=== PATIENT | male | born 1965 | race Caucasian/White ===

== ENCOUNTER 2019-09-05 23:50 | Emergency (ER) | payer OTHER ==
[~2019-09-05] VITALS: Ht 170.2 cm; Wt 81.6 kg
[2019-09-06] VITALS: BP 134/95
[2019-09-06 01:32] LABS: BASOPHILS # (AUTO) 0.1 K/uL (0.00-0.22); EOSINOPHILS # (AUTO) 0.1 K/uL (0-0.4); EOSINOPHILS % (AUTO) 1.8 % (0.0-4.0); HEMOGLOBIN 13.3 g/dL (12.0-18.0); LYMPHOCYTES # (AUTO) 2.3 K/uL (2.0-11.5); LYMPHOCYTES % (AUTO) 28.2 % (20.5-51.1); MEAN CORPUSCULAR HEMOGLOBIN 30 pg (27-31); MEAN CORPUSCULAR HGB CONC 33 g/dL (33-37); MEAN CORPUSCULAR VOLUME 89.5 fL (80-94); MONOCYTES # (AUTO) 0.5 K/uL (0.8-1.0); MONOCYTES % (AUTO) 5.9 % (1.7-9.3); NEUTROPHILS # (AUTO) 5.1 K/uL (1.8-7.7); NEUTROPHILS % (AUTO) 63.1 % (42.2-75.2); PLATELET COUNT (AUTO) 200 K/uL (140-450); RED BLOOD CELL COUNT(AUTO) 4.47 MIL/uL (4.20-6.10); RED CELL DISTRIBUTION WIDTH 15.6 % (11.6-13.7); WHITE BLOOD COUNT (AUTO) 8.1 K/uL (4.8-10.8)
[2019-09-06 01:49] LABS: ALBUMIN 3.7 g/dL (3.4-5.0); ANION GAP 12.8 (8-16); CARBON DIOXIDE 26.3 mmol/L (21-32); POTASSIUM 4.1 mmol/L (3.5-5.1); TOTAL BILIRUBIN 0.4 mg/dL (0.0-1.0)
[2019-09-06 02:20] VITALS: BP 134/95
== END 2019-09-06 02:20 | disposition home or self-care (01) ==
LOC: MED 23:50
DX: R33.9 Retention of urine, unspecified (principal)
CPT/HCPCS: 36415; 51702; 80053; 85025; 99283; 99284

== ENCOUNTER 2020-03-05 16:49 | Emergency (ER) | payer OTHER ==
[~2020-03-05] VITALS: Ht 170.2 cm; Wt 88.5 kg
[2020-03-05 16:52] VITALS: BP 117/78
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
[2020-03-05] MEDS ORDERED: cefTRIAXone 1,000 MG in LIDOCAINE MPF 1% 2.1 ML IM ONE (17:50)
[2020-03-05] MEDS ORDERED: cefTRIAXone 1,000 MG VIAL ONE (17:56)
[2020-03-05] MEDS ORDERED: LIDOCAINE MPF 1% 5 ML ONE (17:57)
[2020-03-05 18:42] VITALS: BP 117/78
--- NOTE | 2020-03-05 18:43 | NUR ---
Patient discharged with v/s stable. Written and verbal after care instructions given and explained. Patient alert, oriented and verbalized understanding of instructions. Ambulatory w cane. All questions addressed prior to discharge. ID band removed. Patient advised to follow up with PMD. Rx of NIROFURANTOIN given. Patient educated on indication of medication including possible reaction and side effects. Opportunity to ask questions provided and answered.
--- NOTE | 2020-03-11 15:53 | NUR ---
Urine culture received from lab. Culture and sensitivity received and shown to Dr. Langston. New Rx for Rx Augmentin 750mg PO BID x10 days received. Patient called and no answer. Unable to leave a voicemail, states mailbox is full. NOK called and voicemail was left and asked patient to call back.
== END 2020-03-05 18:43 | disposition home or self-care (01) ==
LOC: MED 16:49
DX: N30.00 Acute cystitis without hematuria (principal)
CPT/HCPCS: 51702; 81002; 87086; 96372; 99284; J0696; J2001; 99283

== ENCOUNTER 2020-04-10 12:56 | Emergency (ER) | payer OTHER, SELFPAY ==
[~2020-04-10] VITALS: Ht 170.2 cm; Wt 86.2 kg
[~2020-04-10 12:56] MED LIST: ERTA1VIA2 IJ; HYDR-5092 PO; MSCON15 PO; [UNRECOGNIZED DRUG - CODE] PO
[2020-04-10 13:03] VITALS: BP 108/79
--- NOTE | 2020-04-10 13:14 | NUR ---
PATIENT AMBULATED TO ER BED 04
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
--- NOTE | 2020-04-10 13:30 | NUR ---
PT CHANGED INTO A GOWN. 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 PT REPORTS LAST PAIN MANAGEMENT AT 1000 AND STATES 11/13 PAIN. ORIENTED TO CALL LIGHT. BED LOCKED IN LOWEST POSITION. SIDE RAILS X 1.
[2020-04-10] MEDS ORDERED: NACL 0.9% 1,000 ML IV SCH (14:05)
[2020-04-10] MEDS ORDERED: MORPHINE SULFATE 4 MG/ML SYR IVP ONE ×2 (14:05→16:25)
--- NOTE | 2020-04-10 14:20 | NUR ---
LAB AT BEDSIDE
--- NOTE | 2020-04-10 14:25 | NUR ---
CONSENT TO CT WITH IV CONTRAST OBTAINED FROM PT
--- NOTE | 2020-04-10 14:32 | NUR ---
CALLED RAD TO LET THEM KNOW PT IS READY FOR CT AND THAT ERMD STATES OK TO BYPASS LAB RESULTS
[2020-04-10 14:40] LABS: APPEARANCE,URINE SL CLOUDY (CLEAR); BILIRUBIN,URINE NEGATIVE (NEGATIVE); BLOOD, URINE 2+ (NEGATIVE); COLOR,URINE YELLOW (YELLOW); LEUKOCYTE ESTERASE ,URINE 1+ (NEGATIVE); NITRITE, URINE NEGATIVE (NEGATIVE); UGLUCOSE NEGATIVE (NEGATIVE)
--- NOTE | 2020-04-10 14:47 | NUR ---
PT TAKEN TO CT VIA WHEELCHAIR
[2020-04-10 14:50] LABS: BASOPHILS # (AUTO) 0.1 K/uL (0.00-0.22); EOSINOPHILS # (AUTO) 0.2 K/uL (0-0.4); EOSINOPHILS % (AUTO) 2.5 % (0.0-4.0); HEMATOCRIT 43.8 % (36-52); HEMOGLOBIN 14.5 g/dL (12.0-18.0); LYMPHOCYTES # (AUTO) 2.1 K/uL (2.0-11.5); LYMPHOCYTES % (AUTO) 25.5 % (20.5-51.1); MEAN CORPUSCULAR HEMOGLOBIN 30 pg (27-31); MEAN CORPUSCULAR HGB CONC 33 g/dL (33-37); MEAN CORPUSCULAR VOLUME 90.8 fL (80-94); MONOCYTES # (AUTO) 0.4 K/uL (0.8-1.0); MONOCYTES % (AUTO) 4.4 % (1.7-9.3); NEUTROPHILS # (AUTO) 5.6 K/uL (1.8-7.7); NEUTROPHILS % (AUTO) 66.6 % (42.2-75.2); PLATELET COUNT (AUTO) 305 K/uL (140-450); RED BLOOD CELL COUNT(AUTO) 4.82 MIL/uL (4.20-6.10); RED CELL DISTRIBUTION WIDTH 14.4 % (11.6-13.7); WHITE BLOOD COUNT (AUTO) 8.4 K/uL (4.8-10.8)
[2020-04-10 15:01] LABS: WBC,URINE 16-25 (MOD) /HPF (0-5)
--- NOTE | 2020-04-10 15:05 | NUR ---
PT RETURNED FROM CT VIA WHEELCHAIR AND ONTO BED WITHOUT ISSUE. BOLUS IV FLUIDS STARTED PER ORDER. PT STATES PAIN IS 5/10 UPON REASSESSMENT. PT VSS AND IN POSITION OF COMFORT. BED LOCKED AT LOWEST POSITION WITH CALL LIGHT IN REACH. SIDE RAILS X1. PT STATES NEEDS MET.
[2020-04-10 15:26] LABS: ALBUMIN 3.7 g/dL (3.4-5.0); ANION GAP 14.9 (8-16); CREATININE 1.7 mg/dL (0.6-1.3); POTASSIUM 3.9 mmol/L (3.5-5.1); TOTAL BILIRUBIN 0.3 mg/dL (0.0-1.0)
[2020-04-10 16:55] VITALS: BP 116/71
--- NOTE | 2020-04-10 16:55 | NUR ---
Patient discharged with v/s stable. Written and verbal after care instructions given and explained. Patient alert, oriented and verbalized understanding of instructions. Ambulatory with walker to car. All questions addressed prior to discharge. ID band removed. Patient advised to follow up with PMD. Rx of Macrobid given. Patient educated on indication of medication including possible reaction and side effects. Opportunity to ask questions provided and answered.
== END 2020-04-10 16:55 | disposition home or self-care (01) ==
LOC: MED 12:56
DX: N39.0 Urinary tract infection, site not specified (principal); Z90.6 Acquired absence of other parts of urinary tract; Z98.890 Other specified postprocedural states; Z79.899 Other long term (current) drug therapy
CPT/HCPCS: 36415; 74177; 80053; 81001; 83690; 85025; 87040; 87086; 96361; 96374; 96376; 99285; J2270; J7030; Q9967

== ENCOUNTER 2020-04-30 19:55 | Inpatient (IN) | payer OTHER, SELFPAY ==
[~2020-04-30] VITALS: Ht 170.2 cm; Wt 90.7 kg
[2020-04-30 20:14] VITALS: BP 107/72
--- NOTE | 2020-04-30 20:17 | NUR ---
TO LOBBY AMBULATORY, A/W BED
--- NOTE | 2020-04-30 23:20 | NUR ---
SEEN AND EXAMINED BY NATALIE WITH ORDERS AND CARRIED OUT
[2020-04-30] MEDS ORDERED: MORPHINE SULFATE 4 MG/ML SYR IVP ONE (23:25)
[2020-04-30 23:47] LABS: BASOPHILS # (AUTO) 0.1 K/uL (0.00-0.22); BASOPHILS % (AUTO) 1.2 % (0.0-2.0); EOSINOPHILS # (AUTO) 0.2 K/uL (0-0.4); EOSINOPHILS % (AUTO) 1.7 % (0.0-4.0); HEMATOCRIT 40.6 % (36-52); HEMOGLOBIN 13.4 g/dL (12.0-18.0); LYMPHOCYTES # (AUTO) 2.6 K/uL (2.0-11.5); LYMPHOCYTES % (AUTO) 27.4 % (20.5-51.1); MEAN CORPUSCULAR HEMOGLOBIN 30 pg (27-31); MEAN CORPUSCULAR HGB CONC 33 g/dL (33-37); MONOCYTES # (AUTO) 0.6 K/uL (0.8-1.0); MONOCYTES % (AUTO) 6.4 % (1.7-9.3); NEUTROPHILS % (AUTO) 63.3 % (42.2-75.2); PLATELET COUNT (AUTO) 291 K/uL (140-450); RED BLOOD CELL COUNT(AUTO) 4.46 MIL/uL (4.20-6.10); RED CELL DISTRIBUTION WIDTH 14.8 % (11.6-13.7); WHITE BLOOD COUNT (AUTO) 9.5 K/uL (4.8-10.8)
[2020-05-01 00:16] LABS: ALBUMIN 3.7 g/dL (3.4-5.0); ANION GAP 15.2 (8-16); CARBON DIOXIDE 28.1 mmol/L (21-32); CREATININE 1.9 mg/dL (0.6-1.3); POTASSIUM 4.3 mmol/L (3.5-5.1); TOTAL BILIRUBIN 0.3 mg/dL (0.0-1.0)
[2020-05-01] MEDS ORDERED: MORPHINE SULFATE 4 MG/ML SYR IM ONE (00:30)
--- NOTE | 2020-05-01 00:30 | NUR ---
MEDICATED PER ERMDS ORDER, TOLERATED WELL.
[2020-05-01] MEDS ORDERED: VANCOMYCIN 1GM/DEXT 5% PREMIX 200 ML IV SCH (02:15)
[2020-05-01] MEDS ORDERED: VANCOMYCIN PER PHARMACY MC PRN ×2 (02:15→12:20)
[2020-05-01] MEDS ORDERED: NACL 0.9% 1,000 ML IV SCH ×2 (02:25→12:20)
--- NOTE | 2020-05-01 02:40 | NUR ---
ALL RESULTS BACK AND NOTED BY ERMD AND FOR D/C
--- NOTE | 2020-05-01 02:53 | NUR ---
Patient will be admitted to care of JERRELL LÓPEZ. Admited to M/S HOLD. . Belongings list completed. DX, PELVIC ABSCESS, VESICOCUTANEOUS FISTULA,LEFT THIGH CELLULITIS
[2020-05-01] MEDS ORDERED: cefTRIAXone 1,000 MG VIAL ONE ×2 (05:47→16:17)
[2020-05-01] MEDS ORDERED: VANCOMYCIN 1,000 MG VIAL ONE ×2 (06:32→09:08)
--- NOTE | 2020-05-01 08:04 | NUR ---
PATIENT HAS BEEN SCREENED AND CATEGORIZED LOW NUTRITION RISK. PATIENT WILL BE SEEN WITHIN 7 DAYS OF ADMISSION. 05/08/[address]
[2020-05-01] MEDS: MORPHINE SULFATE 4 MG/ML SYR IVP SCH (08:51)
--- NOTE | 2020-05-01 10:25 | NUR ---
PT TAKEN TO CT VIA WHEELCHAIR.
[2020-05-01] MEDS ORDERED: ONDANSETRON 4 MG/2 ML VIAL IM/IVP PRN (12:20)
[2020-05-01] MEDS ORDERED: ACETAMINOPHEN 325 MG TAB PO PRN (12:20)
[2020-05-01] MEDS ORDERED: DOCUSATE SODIUM 100 MG GELCAP PO PRN (12:20)
[2020-05-01] MEDS ORDERED: POTASSIUM CHLORIDE 10 MEQ TABER PO PRN (12:20)
[2020-05-01] MEDS ORDERED: HYDROcodone/APAP 5/325 MG 1 TAB TAB PO PRN (13:25)
[2020-05-01] MEDS: HYDROcodone/APAP 7.5/325 MG 1 TAB PO PRN ×2 (13:27→20:09)
--- NOTE | 2020-05-01 13:36 | NUR ---
MEDICATED PT PER DR'S ORDERS FOR PAIN MEDICATION. RR EVEN AND UNLABORED. ALL NEEDS MET. NO NEW CONCERNS AT THIS TIME.
[2020-05-01 14:03] LABS: FREE T4 (FREE THYROXINE) 1.26 ng/dL (0.76-1.46); THYROID STIMULATING HORMONE 1.78 uIU/mL (0.34-3.74)
--- NOTE | 2020-05-01 15:55 | NUR ---
DISCHARGE PLANNING: (LATE ENTRY) RECEIVED AN ORDER FOR HLOC TRANSFER ORDER. CLARIFIED ORDER WITH DR. ALLAN. PER DR ALLAN HLOC TRANSFER FOR UROLOGY AND ORTHO EVALUATION. HE STATED THAT DR. WILKINSON SAW THE PATIENT AND TOLD HIM THAT IT IS A COMPLICATED CASE AND WILL NEED TO FOLLOW UP WITH THE UROLOGIST FROM [facility]. REFERRAL SENT TO [facility]. RECEIVED A CALL FROM ALIYAH OF [facility] TRANSFER CENTER TO GATHER MORE INFORMATION. PROVIDED HER OF ALL THE INFORMATION NEEDED. SHE STATED THAT THEY REQUIRE PCR COVID TESTING BEFORE THEY CAN PROCESS THE TRANSFER. PROVIDED HER OF DR. ALLAN'S CONTACT INFORMATION. DR. ALLAN MADE AWARE. HE STATED THAT HE WILL PUT THE ORDER IN FOR COVID PCR. DR. ALLAN ALSO PROVIDED ME OF DR. WILKINSON'S CONTACT INFO [phone], WHICH I PROVIDED TO [facility]. DR. ALLAN ALSO MENTIONED THAT THE PATIENT MIGHT GO AMA. RECEIVED A CALL FROM YUNI OF [facility] TRANSFER [facility], REQUESTING IF I CAN SEND HIM MORE INFORMATION ABOUT THIS PATIENT BECAUSE THE INFORMATION I SENT HIM IS VAGUE AND CONFLICTING. HE STATED THAT H&P AND THE CT RESULTS ARE SAYING DIFFERENT THINGS. INFORMED HIM THAT I WILL SEND HIM ED DOCUMENTATION IF IT WOULD HELP. ED NOTES AND DR. HUDDLESTON'S CONSULTATION NOTES SENT TO [facility]. WILL FOLLOW UP. Addendum: 05/01/20 at 1631 by Constanza Pringle CM LATE ENTRY: [facility] [phone] MADE AWARE OF THE ORDER. I ALSO INFORMED HIM THAT I FAXED THE REFERRAL TO [facility]. HE STATED TO LET THEM KNOW ONCE THERE IS AN ACCEPTING FACILITY. HE STATED FOR AFTER HOURS WE CAN CALL SARAH BETH AT [phone]. HE ALSO PROVIDED ME WITH TRANSPORT AUTH [id number]. CONTACTED [facility] [phone], ABLE TO SPEAK TO PERFECTO AND A WILL CALL TRANSPORT WAS SET UP. PROVIDED PERFECTO OF THE TRANSPORT AUTH. RECEIVED A CALL BACK FROM YUNI OF [facility], STATING THAT THEIR UROLOGIST DR. RIVERA SPOKE TO DR WILKINSON AND IS DECLINING THE CASE DUE TO THEIR NO IMMEDIATE NEED FOR IN PATIENT. DR. ALLAN MADE AWARE.
--- NOTE | 2020-05-01 17:21 | NUR ---
PT SLEEPING IN WHEELCHAIR. RR EVEN AND UNLABORED. MAINTENANCE FLUID RUNNING PER DR'S ORDERS. NO NEW CONCERNS AT THIS TIME. ALL NEEDS MET.
--- NOTE | 2020-05-01 19:14 | NUR ---
REPORT GIVEN TO SEBASTIAN ROSE FOR CONTINUITY OF CARE.
--- NOTE | 2020-05-01 19:15 | NUR ---
REPORT RECEIVED FROM SEBASTIAN KEARNEY FOR CONTINUATION OF CARE.
--- NOTE | 2020-05-01 19:30 | NUR ---
pT HAS 20 G IV PLACED BY AM SHIFT TO LEFT WRIST. OBSERVED URINARY VALLADARES CATHETER IN PT PLACED BY AM SHIFT.
--- NOTE | 2020-05-01 20:17 | NUR ---
COVID SWAB COLLECTED AND HANDED TO LAB.
--- NOTE | 2020-05-01 22:15 | NUR ---
pt resting in chair, no acute distress noted. VSS.
--- NOTE | 2020-05-01 23:51 | NUR ---
flushed pt iv w/ 10 cc of NS - iv patent no infiltration , redness or pain noted at IV site.
--- NOTE | 2020-05-02 00:21 | NUR ---
pt sleeping in chair. No acute distress noted.
--- NOTE | 2020-05-02 01:52 | NUR ---
YOHANA AYALA AT [facility] - NO PENDING MEDICATIONS AT THIS TIME.
--- NOTE | 2020-05-02 02:35 | NUR ---
pt c/o of 6/10 pain at this time. Will review PRN pain medications for administration.
[2020-05-02] MEDS: HYDROcodone/APAP 7.5/325 MG 1 TAB PO PRN ×2 (02:43→17:36)
--- NOTE | 2020-05-02 04:01 | NUR ---
PT REQUESTING A SNACK AND JUICE, PROVIDED WITH CRANBERRY JUICE AND CALLED [employer] FOR A SANDWICH, WAITING FOR SANDWICH AT THIS TIME.
[2020-05-02] MEDS ORDERED: VANCOMYCIN 1,000 MG in DEXTROSE 5% 250 ML IV SCH ×2 (06:00→13:00)
--- NOTE | 2020-05-02 07:08 | NUR ---
REPORT GIVEN TO SEBASTIAN SHAIKH FOR CONTINUATION OF CARE.
--- NOTE | 2020-05-02 08:01 | NUR ---
Patient will be admitted to care of Dr Levy. Admited to M/S. Will go to room 110-A. Belongings list completed. Report to Kristen CORTES.
--- NOTE | 2020-05-02 08:02 | NUR ---
RECEIVED TELEPHONE REPORT FROM ER NURSE. PT HAS L WRIST 20G SALINE LOCK. PT HAS A VALLADARES CATH, PT IS AMBULATORY. PT HAS A LEFT GROIN ABSCESS/ FISTULA. WILL PREPARE ROOM FOR PT.
[2020-05-02 08:27] LABS: BASOPHILS # (AUTO) 0.1 K/uL (0.00-0.22); BASOPHILS % (AUTO) 0.8 % (0.0-2.0); EOSINOPHILS # (AUTO) 0.1 K/uL (0-0.4); EOSINOPHILS % (AUTO) 1.8 % (0.0-4.0); HEMATOCRIT 39.1 % (36-52); HEMOGLOBIN 13.1 g/dL (12.0-18.0); LYMPHOCYTES # (AUTO) 1.5 K/uL (2.0-11.5); LYMPHOCYTES % (AUTO) 19.7 % (20.5-51.1); MEAN CORPUSCULAR HEMOGLOBIN 31 pg (27-31); MEAN CORPUSCULAR HGB CONC 34 g/dL (33-37); MEAN CORPUSCULAR VOLUME 91.1 fL (80-94); MONOCYTES # (AUTO) 0.5 K/uL (0.8-1.0); MONOCYTES % (AUTO) 6.9 % (1.7-9.3); NEUTROPHILS # (AUTO) 5.2 K/uL (1.8-7.7); NEUTROPHILS % (AUTO) 70.8 % (42.2-75.2); PLATELET COUNT (AUTO) 245 K/uL (140-450); RED BLOOD CELL COUNT(AUTO) 4.29 MIL/uL (4.20-6.10); RED CELL DISTRIBUTION WIDTH 14.7 % (11.6-13.7); WHITE BLOOD COUNT (AUTO) 7.4 K/uL (4.8-10.8)
--- NOTE | 2020-05-02 08:29 | NUR ---
PT TRANSFERRED TO FLOOR VIA W/C ACCOMPANIED BY EMT.
[2020-05-02 08:37] LABS: ANION GAP 12.1 (8-16); CARBON DIOXIDE 26.9 mmol/L (21-32); CREATININE 1.5 mg/dL (0.6-1.3)
[2020-05-02] MEDS: MORPHINE SULFATE 4 MG/ML SYR IVP SCH ×2 (08:43→22:43)
[2020-05-02 08:50] VITALS: BP 131/68
--- NOTE | 2020-05-02 08:51 | NUR ---
PT IN ROOM, GAVE MORPHINE OF SEVERE GROIN PAIN 10/10, MEDICATION EDUCATION PROVIDED. PT TOLERATED WELL. PT IS STABLE, WILL CONTINUE TO MONITOR
[2020-05-02 09:06] LABS: T4 (THYROXINE) 8.9 ug/dL (4.5-12.0)
--- NOTE | 2020-05-02 12:14 | NUR ---
ADMINISTERED NORCO FOR PAIN 6/10 LEFT GROIN, MEDICATION EDUCATION PROVIDED. PLACED ICE PACK ON GROIN, PT TOLERATED WELL. PT IS STABLE, WILL CONTINUE TO MONITOR
--- NOTE | 2020-05-02 14:33 | NUR ---
ADMINISTERED SCHEDULED MEDICATION, MEDICATION EDUCATION PROVIDED. PT TOLERATED WELL. PT IS STABLE, WILL CONTINUE TO MONITOR
[2020-05-02 16:00] VITALS: BP 105/61
--- NOTE | 2020-05-02 16:08 | NUR ---
OBTAINED CONSENT FOR SURGERY, PT IS STABLE, WILL CONTINUE TO MONITOR.
[2020-05-02] MEDS: NACL 0.45% 1,000 ML IV SCH (17:33)
--- NOTE | 2020-05-02 17:38 | NUR ---
ADMINISTERED SCHEDULED FLUIDS, NORCO FOR GROIN PAIN 10/14, MEDICATION EDUCATION PROVIDED. PT VERBALIZED UNDERSTANDING, PT TOLERATED WELL. PT IS STABLE, WILL CONTINUE TO MONITOR.
--- NOTE | 2020-05-02 19:20 | NUR ---
ENDORSE PT TO NIGHT NURSE FOR CONTINUITY OF CARE, PT IS STABLE
[2020-05-02 22:44] VITALS: BP 144/88
[2020-05-03] MEDS ORDERED: MORPHINE SULFATE 2 MG/ML SYR IVP PRN ×2 (03:40→03:50)
[2020-05-03] MEDS: NACL 0.45% 1,000 ML IV SCH (07:09)
[2020-05-03 07:33] LABS: BASOPHILS % (AUTO) 0.4 % (0.0-2.0); EOSINOPHILS # (AUTO) 0.2 K/uL (0-0.4); EOSINOPHILS % (AUTO) 2.7 % (0.0-4.0); HEMATOCRIT 38.3 % (36-52); HEMOGLOBIN 12.6 g/dL (12.0-18.0); LYMPHOCYTES # (AUTO) 1.9 K/uL (2.0-11.5); LYMPHOCYTES % (AUTO) 30.7 % (20.5-51.1); MEAN CORPUSCULAR HEMOGLOBIN 30 pg (27-31); MEAN CORPUSCULAR HGB CONC 33 g/dL (33-37); MEAN CORPUSCULAR VOLUME 91.3 fL (80-94); MONOCYTES # (AUTO) 0.4 K/uL (0.8-1.0); MONOCYTES % (AUTO) 6.6 % (1.7-9.3); NEUTROPHILS # (AUTO) 3.6 K/uL (1.8-7.7); NEUTROPHILS % (AUTO) 59.6 % (42.2-75.2); PLATELET COUNT (AUTO) 238 K/uL (140-450); RED CELL DISTRIBUTION WIDTH 14.4 % (11.6-13.7); WHITE BLOOD COUNT (AUTO) 6.1 K/uL (4.8-10.8)
[2020-05-03 08:00] VITALS: BP 96/57
[2020-05-03 09:26] LABS: ANION GAP 16.2 (8-16); CARBON DIOXIDE 24.4 mmol/L (21-32); CREATININE 1.5 mg/dL (0.6-1.3); POTASSIUM 4.6 mmol/L (3.5-5.1)
--- NOTE | 2020-05-03 09:43 | NUR ---
PATIENT HAS BEEN RE-SCREENED AND CATEGORIZED MODERATE NUTRITIONAL RISK FOR ABIMBOLA OF 17. PATIENT WILL BE SEEN WITHIN 3-5 DAYS OF ADMISSION. 05/03/20 05/05/[address]
--- NOTE | 2020-05-03 11:02 | NUR ---
ADMINISTERED PRESCRIBED MEDS PER MD ORDER. PATIENT TOLERATED WELL. MEDICATION EDUCATION PROVIDED. PATIENT VERBALIZED UNDERSTANDING. SAFETY MEASURES IN PLACE. WILL CONT TO MONITOR.
--- NOTE | 2020-05-03 11:15 | NUR ---
PATIENT TAKEN TO SURGERY.
[2020-05-03] MEDS ORDERED: BUPIVACAINE-MPF/EPI 0.5% 30 ML VIAL INJ ONE (11:52)
[2020-05-03] MEDS ORDERED: NEOSTIGMINE 1:1000 10 MG/10 ML VIAL ONE (12:00)
[2020-05-03] MEDS ORDERED: LIDOCAINE 2% 100 MG/5 ML SYR IVP ONE (12:00)
[2020-05-03] MEDS ORDERED: METOCLOPRAMIDE 10 MG/2 ML INJ VIAL ONE (12:00)
[2020-05-03] MEDS ORDERED: PROPOFOL 200 MG/20 ML VIAL IV ONE (12:00)
[2020-05-03] MEDS ORDERED: SEVOFLURANE 250 ML BTL INH ONE (12:00)
[2020-05-03] MEDS ORDERED: SUCCINYLCHOLINE CHLORIDE 200 MG/10 ML VIAL IVP ONE (12:00)
[2020-05-03] MEDS ORDERED: MIDAZOLAM 2 MG/2 ML VIAL ONE (12:00)
[2020-05-03] MEDS ORDERED: DEXAMETHASONE 4 MG/ML VIAL ONE (12:00)
[2020-05-03] MEDS ORDERED: ONDANSETRON 4 MG/2 ML VIAL ONE (12:00)
[2020-05-03] MEDS ORDERED: GLYCOPYRROLATE 0.2 MG/ML VIAL ONE (12:00)
[2020-05-03] MEDS ORDERED: ROCURONIUM 50 MG/5 ML VIAL IV ONE (12:00)
[2020-05-03] MEDS ORDERED: ePHEDrine 50 MG/ML VIAL ONE (12:00)
[2020-05-03] MEDS ORDERED: fentaNYL citrate 0.05 MG/ML VIAL ONE (12:00)
[2020-05-03] MEDS ORDERED: HYDROmorphone 1 MG/ML AMP IVP PRN ×2 (12:35→12:40)
[2020-05-03] MEDS ORDERED: MEPERIDINE 25 MG/ML SYR IVP PRN (12:35)
[2020-05-03] MEDS ORDERED: diphenhydrAMINE 50 MG/ML VIAL IVP PRN (12:35)
[2020-05-03] MEDS ORDERED: LACTATED RINGERS 1,000 ML IV SCH (12:35)
[2020-05-03] MEDS ORDERED: ONDANSETRON 4 MG/2 ML VIAL IVP PRN (12:35)
[2020-05-03] MEDS: HYDROmorphone PFS 2 MG/ML SYR ONE ×2 (12:55→13:05)
--- NOTE | 2020-05-03 13:45 | NUR ---
PATIENT HAS RETURNED FROM SURGERY. DISCHARGE ORDERS REC'D FROM .
--- NOTE | 2020-05-03 17:12 | NUR ---
HOURLY ROUNDING PERFORMED. ADVSD PATIENT PENDING D/C INSTRUCTIONS. PATIENT VERBALIZED UNDERSTANDING. PROVIDED PATIENT W/ TURKEY SANDWICH AND CRANBERRY JUICE. SAFETY MEASURES IN PLACE. WILL CONT TO MONITOR.
[2020-05-03] MEDS ORDERED: HYDR-5122 PO (17:19)
[2020-05-03 17:20] VITALS: BP 107/66
--- NOTE | 2020-05-03 19:03 | NUR ---
PATIENT IS DISCHARGED. D/C PAPERWORK PRINTED, REVIEWED AND SIGNED BY PATIENT. PATIENT VERBALIZED UNDERSTANDING. D/C PICTURE OF GROIN INCISION DRESSING TAKEN AND PLACED IN CHART. PATIENT UNDERSTANDS TO VISIT NEAREST ER FOR WORSENING TEMPERATURE, PAIN, SOB OR SWELLING. PATIENT GATHERED ALL BELONGINGS. ESCORTED PATIENT TO PERSONAL RIDE IN FRONT OF HOSPITAL. PATIENT IS STABLE.
== END 2020-05-03 18:50 | disposition home or self-care (01) | DRG 364 ==
LOC: MED 19:55 → MMU 05-01 03:11 → MTU 05-02 08:01
PROVIDERS: ADMIT Emergency Medicine; ATTEND Emergency Medicine
PROC: 0Y960ZZ Drainage of Left Inguinal Region, Open Approach (ICD-10-PCS; principal; 2020-05-03 10:55)
DX: L02.214 Cutaneous abscess of groin (principal); L03.314 Cellulitis of groin; N17.0 Acute kidney failure with tubular necrosis; L98.8 Other specified disorders of the skin and subcutaneous tissue; Z20.828 Contact with and (suspected) exposure to other viral communicable diseases; N32.2 Vesical fistula, not elsewhere classified
CPT/HCPCS: 36415; 71045; 72192; 75989; 76770; 80048; 80053; 83036; 84436; 84439; 84443; 84479; 85025; 87070; 87075; 87081; 87205; 93005; 96365; 96367; 96372; 99285; J0330; J0696; J1100; J1170; J2001; J2250; J2270; J2405; J2704; J2710; J2765; J3010; J3370; J3490; J7060